=== PATIENT | female | born 1975 | race Caucasian/White ===

== ENCOUNTER 2018-05-30 14:17 | Emergency (ER) | payer OTHER, BC ==
[2018-05-30] MEDS ORDERED: ACETAMINOPHEN 325 MG TABLET PO ONE (15:08)
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
[2018-05-30 16:58] VITALS: BP 110/54
== END 2018-05-30 17:15 | disposition home or self-care (01) ==
LOC: ER 14:17
DX: S16.1XXA Strain of muscle, fascia and tendon at neck level, initial encounter (principal); S29.012A Strain of muscle and tendon of back wall of thorax, initial encounter; V89.2XXA Person injured in unspecified motor-vehicle accident, traffic, initial encounter; E03.9 Hypothyroidism, unspecified; G25.81 Restless legs syndrome; Z88.0 Allergy status to penicillin
CPT/HCPCS: 72070; 72125; 99284